=== PATIENT | male | born 1990 | race Hispanic/Latino ===

== ENCOUNTER 2018-08-28 13:18 | Emergency (ER) | payer MEDICARE ==
[2018-08-28] MEDS ORDERED: ONDANSETRON ODT 4 MG TAB ONE (14:00)
== END 2018-08-28 14:04 | disposition home or self-care (01) ==
LOC: EDH 13:18
DX: J02.8 Acute pharyngitis due to other specified organisms (principal); B97.89 Other viral agents as the cause of diseases classified elsewhere; F32.9 Major depressive disorder, single episode, unspecified; F90.9 Attention-deficit hyperactivity disorder, unspecified type; Z72.0 Tobacco use
CPT/HCPCS: 87880